=== PATIENT | female | born 1950 | race Caucasian/White ===

== ENCOUNTER 2018-01-16 16:25 | Emergency (ER) | payer MEDICARE, BC ==
[~2018-01-16] VITALS: Ht 154.9 cm; Wt 63.0 kg
[~2018-01-16 16:25] MED LIST: NORCO10T PO; OMEP40CA37 PO; THYR30TA2 PO; TRIA1TAB5 PO; VILA40TA PO; WALKERFR
[2018-01-16] MEDS ORDERED: HYDROcodone/acetaminophen 10/325mg tab PO ONE (16:45)
[2018-01-16] MEDS ORDERED: fentaNYL/PF 50MCG/1 ML 2ML syringe IV ONE (17:15)
[2018-01-16] MEDS: MIDAZolam 5mg/ml 2ml vial IV ONE ×2 (17:28→17:39)
[2018-01-16] MEDS ORDERED: HYDR-3965 PO (17:45)
[2018-01-16 17:55] VITALS: BP 148/79
== END 2018-01-16 18:17 | disposition home or self-care (01) ==
LOC: ER 16:25
DX: S43.004A Unspecified dislocation of right shoulder joint, initial encounter (principal); Z79.899 Other long term (current) drug therapy; Z88.1 Allergy status to other antibiotic agents; W01.0XXA Fall on same level from slipping, tripping and stumbling without subsequent striking against object, initial encounter; Y93.F1 Activity, caregiving, bathing; Y92.89 Other specified places as the place of occurrence of the external cause; Y99.8 Other external cause status
CPT/HCPCS: 23650; 73020; 73030; 96374; 99284; J2250; J3010; L3650

== ENCOUNTER 2018-11-19 10:13 | Emergency (ER) | payer MEDICARE, BC ==
[~2018-11-19] VITALS: Ht 154.9 cm; Wt 63.6 kg
[2018-11-19] MEDS ORDERED: LORazepam 2 mg/ml vial IV ONE (10:35)
[2018-11-19 11:30] LABS: BASOPHILS # (AUTO) 0.2 X10'3 (0-0.2); BASOPHILS % (AUTO) 1.5 % (0-1); EOSINOPHILS # (AUTO) 0.3 X10'3 (0-0.9); EOSINOPHILS % (AUTO) 2.8 % (0-6); HEMATOCRIT 36.9 % (35.0-45.0); HEMOGLOBIN 12.3 g/dl (12.0-16.0); LYMPHOCYTES # (AUTO) 1.6 X10'3 (1.1-4.8); LYMPHOCYTES % (AUTO) 14.5 % (21-51); MEAN CORPUSCULAR HEMOGLOBIN 28.9 PG (27.0-31.0); MEAN CORPUSCULAR HGB CONC 33.4 g/dL (33.0-36.5); MEAN CORPUSCULAR VOLUME 86.8 FL (78-98); MEAN PLATELET VOLUME 6.8 FL (7.4-10.4); MONOCYTES # (AUTO) 0.9 X10'3 (0-0.9); MONOCYTES % (AUTO) 8.1 % (2-12); NEUTROPHILS # (AUTO) 7.9 X10'3 (1.8-7.7); NEUTROPHILS % (AUTO) 73.1 % (42-75); PLATELET COUNT 543 X10'3 (140-440); RED BLOOD COUNT 4.25 X10'6 (4.20-5.60); RED CELL DISTRIBUTION WIDTH 12.7 % (11.5-14.5); WHITE BLOOD COUNT 10.9 X10'3 (4.5-11.0)
[2018-11-19 11:41] LABS: PARTIAL THROMBOPLASTIN TIME 30 SECONDS (22-32); PROTHROMBIN TIME 10.6 SECONDS (9.0-12.0)
[2018-11-19 11:45] LABS: ALANINE AMINOTRANSFERASE 11 U/L (12-78); ALBUMIN 2.8 G/DL (3.4-5.0); ALBUMIN/GLOBULIN RATIO 0.7 (1.1-1.5); ALKALINE PHOSPHATASE 123 IU/L (46-116); ANION GAP 10 (8-16); ASPARTATE AMINO TRANSFERASE 13 U/L (10-37); BILIRUBIN,TOTAL 0.2 MG/DL (0.1-1.0); BLOOD UREA NITROGEN 30 MG/DL (7-18); BUN/CREATININE RATIO 16.9 (6.6-38.0); CALCIUM 9.3 MG/DL (8.5-10.1); CHLORIDE 101 MMOL/L (99-107); CREATININE 1.77 MG/DL (0.40-0.90); GLUCOSE 72 MG/DL (70-104); POTASSIUM 3.3 MMOL/L (3.5-5.1); SODIUM 140 MMOL/L (135-145); TOTAL CARBON DIOXIDE 28.8 MMOL/L (24-32); TOTAL PROTEIN 6.9 G/DL (6.4-8.2); eGFR 28 ML/MIN
[2018-11-19] MEDS ORDERED: NAPR-996 PO (11:54)
[2018-11-19] MEDS ORDERED: VENL75TA4 PO (11:54)
[2018-11-19] MEDS ORDERED: INDO25CA18 PO (11:54)
[2018-11-19] MEDS ORDERED: LEVO50TA8 PO (11:54)
[2018-11-19] MEDS ORDERED: POTA10TA19 PO (11:54)
[2018-11-19] MEDS ORDERED: HYOS0.3737 PO (11:54)
[2018-11-19 12:27] VITALS: BP 140/99
[2018-11-22 14:23] LABS: OCCULT BLOOD STOOL POSITIVE (Neg)
== END 2018-11-19 12:30 | disposition home or self-care (01) ==
LOC: ER 10:13
DX: K51.80 Other ulcerative colitis without complications (principal); K92.1 Melena; Z88.1 Allergy status to other antibiotic agents; Z79.899 Other long term (current) drug therapy
CPT/HCPCS: 36415; 80053; 82272; 85025; 85610; 85730; 96374; 99283; J2060

== ENCOUNTER 2021-02-24 16:49 | Emergency (ER) | payer MEDICARE, BC ==
[~2021-02-24] VITALS: Ht 154.9 cm; Wt 64.1 kg
[~2021-02-24 16:49] MED LIST changes: +HYOS0.3737 PO; +INDO-12 PO; +LEVO50TA8 PO; +NAPR-996 PO; -NORCO10T PO; +OMEP40CA13 PO; -OMEP40CA37 PO; +POTA10TA19 PO; -THYR30TA2 PO; +VENL75TA4 PO; -VILA40TA PO; -WALKERFR
[2021-02-24 17:56] LABS: BASOPHILS # (AUTO) 0.1 X10'3 (0-0.2); BASOPHILS % (AUTO) 0.9 % (0-1); EOSINOPHILS # (AUTO) 0.2 X10'3 (0-0.9); EOSINOPHILS % (AUTO) 2.1 % (0-6); HEMATOCRIT 47.6 % (35.0-45.0); LYMPHOCYTES % (AUTO) 27.6 % (21-51); MEAN CORPUSCULAR HEMOGLOBIN 30.1 PG (27.0-31.0); MEAN CORPUSCULAR HGB CONC 33.6 g/dL (33.0-36.5); MEAN CORPUSCULAR VOLUME 89.5 FL (78-98); MEAN PLATELET VOLUME 8.1 FL (7.4-10.4); MONOCYTES # (AUTO) 1.2 X10'3 (0-0.9); MONOCYTES % (AUTO) 11.1 % (2-12); NEUTROPHILS # (AUTO) 6.3 X10'3 (1.8-7.7); NEUTROPHILS % (AUTO) 58.3 % (42-75); PLATELET COUNT 471 X10'3 (140-440); RED BLOOD COUNT 5.31 X10'6 (4.20-5.60); RED CELL DISTRIBUTION WIDTH 12.8 % (11.5-14.5); WHITE BLOOD COUNT 10.8 X10'3 (4.5-11.0)
[2021-02-24 18:11] LABS: ALANINE AMINOTRANSFERASE 25 U/L (12-78); ALBUMIN 3.5 G/DL (3.4-5.0); ALBUMIN/GLOBULIN RATIO 0.8 (1.1-1.5); ALKALINE PHOSPHATASE 149 IU/L (46-116); ANION GAP 12 (8-16); ASPARTATE AMINO TRANSFERASE 18 U/L (10-37); BILIRUBIN,TOTAL 0.5 MG/DL (0.1-1.0); BLOOD UREA NITROGEN 25 MG/DL (7-18); BUN/CREATININE RATIO 15.6 (6.6-38.0); CALCIUM 9.4 MG/DL (8.5-10.1); CHLORIDE 99 MMOL/L (99-107); GLUCOSE 110 MG/DL (70-104); LIPASE 88 U/L (73-393); SODIUM 140 MMOL/L (135-145); TOTAL PROTEIN 7.9 G/DL (6.4-8.2); eGFR 32 ML/MIN
[2021-02-24] MEDS ORDERED: normal saline 1000ML IV soln IVB ONE (18:20)
[2021-02-24] MEDS ORDERED: methylPREDNISolone sod succ 125mg/2ml vial IV ONE (18:20)
[2021-02-24] MEDS ORDERED: potassium Cl 20 mEq SR tablet PO STA (18:22)
[2021-02-24 19:08] VITALS: BP 126/72
== END 2021-02-24 19:09 | disposition home or self-care (01) ==
LOC: ER 16:50
DX: E87.6 Hypokalemia (principal); K51.90 Ulcerative colitis, unspecified, without complications; R19.7 Diarrhea, unspecified; R42 Dizziness and giddiness; Z88.1 Allergy status to other antibiotic agents; Z79.899 Other long term (current) drug therapy
CPT/HCPCS: 36415; 80053; 83605; 83690; 85025; 96361; 96374; 99284; J2930; J7030